=== PATIENT | female | born 1950 | race Two or more races ===

== ENCOUNTER → 2021-01-14 | Outpatient (CLI) | payer MEDICARE ==
[2021-01-08 10:41] VITALS: BP 144/83
[~2021-01-14] MED LIST: ACET325T9 PO; AMLO10TA4 PO; ASPI325T8 PO; ATOR40TA PO; FLUT1DIS3 IH; HYDR25TA10 PO; LISI-130 PO; MAG-115 PO; NITR0.4T22 SL; NITR6.5C14 PO; PANT20TA2 PO; POTA-121 PO; REGADENOSON 0.4 MG/5 ML DISP.SYRIN. IV ONE
--- NOTE | 2021-01-14 17:47 | RAD ---
MR#: [id number] Date of Study: 01/14/2021 Ordering Physician: EDD GONZALES, Referring Physician: MEREDITH OLIVO Tech: CARMELA Boland ARRT (R) (N) APPROVED REPORT Test Type: Pharmacological Stress Nurse/Tech: Joyce Wooten R.N. Test Indications: chest pain Cardiac History: high cholesterol,htn, asthma Medications: See Electronic Medical Record Medical History: See Electronic Medical Record Resting ECG: SR Resting Heart Rate: 60 bpm Resting Blood Pressure: 152/78mmHg Pretest Chest Pain: No chest pain Nurse/Tech Notes S1S2, lungs CTA Consent: The procedure was explained to the patient in lay terms. Informed consent was witnessed. Luis eout was entered into [facility]. History and Stress Test performed by RT Danielle (R) (N) Pharm. Details Pharmacologic stress testing was performed using 0.4mg per 5ml of regadenoson given intravenously ove r 7-10 seconds. Stress Symptoms SOA, h/a POST EXERCISE Reason for Termination: Infusion complete Max HR: 103 bpm Max Blood Pressure: 143/77mmHg Blood Pressure response to exercise: Normal blood pressure response during stress. Heart Rate response to exercise: wnl Chest Pain: No. Arrhythmia: No. 1 pvc [address] pac noted ST Change: No. INTERPRETATION Stress EKG Conclusion: The resting EKG shows a sinus rhythm. The stress EKG shows no significant changes from baseline. No EKG evidence of stress-induced ischemia. Imaging Protocol IMAGE PROTOCOL: Rest Tc-99m/stress Tc-99m 1 day Rest: Stress: Viability: Radiopharm.Tc99m [id number] Sestamibi Dose9.7mCi 31.4mCi Img Date 01/14/2021 01/14/2021 Inj-Img [id number]. 90min. Rest Admin Site:IV - Right AntecubitalAdministrator:CARMELA Boland, SAM (R)(N) Stress Admin Site: IV - Left AntecubitalAdministrator: RT Britt (R)(N) STRESS DATA End Diast. Vol.117.0mlAv. Heart Rate63.0bpm End Syst. Vol.41.0mlCO Index BSA0.0L/min Myocardial Kmgs212.0gEject. Nuffdosb32.0% Stress Rates Pk. Fill Rate2.53EDV/secLVtime Pk. Fill 134.04msec Pk. Empty Rate3.50ESV/secLVtime Pk. Lrfuw870.90msec 1/3 Pk. Fill1.71EDV/sec Stress Scores Regional WT2.00Summed WT18.00 Regional WM0.00Summed WM2.00 LV Perfusion The stress scans show no significant defects. The rest scans show no significant defects. Nuclear imaging shows no reversible ischemia or infarct. Wall Motion Left ventricular ejection fraction is 63% with no regional wall motion abnormalities. LV Perf. Quant 17 Seg. SSS2.00 17 Seg. SRS5.00 17 Seg. SDS0.00 Stress Defect Extent (% LAD)3.10Rest Defect Extent (% LAD)3.80Rev. Defect Extent (% LAD)0.00 Stress Defect Extent (% LCX) 0.00Rest Defect Extent (% LCX)6.30Rev. Defect Extent (% LCX)0.00 Stress Defect Extent (% RCA)0.00Rest Defect Extent (% RCA)0.00Rev. Defect Extent (% RCA)0.00 Stress Defect Extent (% PATSY)2.40Rest Defect Extent (% PATSY)7.00Rev. Defect Extent (% PATSY)0.00 Conclusion 1. No EKG evidence of stress-induced ischemia. 2. Nuclear imaging shows no reversible ischemia or infarct. 3. Intact LV systolic function with an ejection fraction of 63%. 4. Low risk Lexiscan nuclear stress test. Signed by : Edd Gonzales MD Electronically Approved : 01/14/2021 17:47:01
== END ==
LOC: NM 10:19
PROVIDERS: ATTEND Internal Medicine Cardiovascular Disease
DX: R07.9 Chest pain, unspecified (principal)
CPT/HCPCS: 78452; 93017; A9500; J2785